=== PATIENT | female | born 1970 ===

== ENCOUNTER 2020-12-03 08:00 | Outpatient (CLI) | payer OTHER | END 2020-12-03 08:30 | disposition home or self-care (01) | LOC: PPH VACUNA 08:00 | DX: Z23 Encounter for immunization (principal) ==

== ENCOUNTER 2020-12-24 08:00 | Outpatient (CLI) | payer OTHER | END 2020-12-24 08:30 | disposition home or self-care (01) | LOC: PPH VACUNA 08:00 | DX: Z23 Encounter for immunization (principal) ==